=== PATIENT | male | born 1970 | race Caucasian/White ===

== ENCOUNTER 2018-05-28 22:30 | Emergency (ER) | payer OTHER ==
[2018-05-29] MEDS: LORAZEPAM 2 MG INJ IV (00:39)
[2018-05-29] MEDS: CHLORDIAZEPOXIDE 25 MG CAP PO (00:39)
[2018-05-29] MEDS: SOD CHLORIDE 0.9% 1,000 ML IV (00:39)
== END 2018-05-29 01:53 | disposition home or self-care (01) ==
LOC: E/R 22:30
DX: F41.9 Anxiety disorder, unspecified (principal); F10.239 Alcohol dependence with withdrawal, unspecified; R40.2252 Coma scale, best verbal response, oriented, at arrival to emergency department; R40.2142 Coma scale, eyes open, spontaneous, at arrival to emergency department; R40.2362 Coma scale, best motor response, obeys commands, at arrival to emergency department
CPT/HCPCS: 96361; 96374; 99284-25